=== PATIENT | female | born 1985 | race Caucasian/White ===

== ENCOUNTER 2022-03-12 03:14 | Emergency (ER) | payer SELFPAY ==
[~2022-03-12] VITALS: Ht 170.2 cm; Wt 108.9 kg
[2022-03-12] MEDS ORDERED: NALOXONE HCL 1 MG/ML 2ML VIAL IM ONE (03:45)
[2022-03-12] MEDS ORDERED: SODIUM CHLORIDE 0.9% 1,000 ML IV ONE (03:45)
[2022-03-12 04:16] LABS: BASOPHILS % 0.1 % (0.0-2.0); EOSINOPHILS % 0.2 % (0.0-5.0); HEMOGLOBIN. 12.6 g/dL (12.0-16.0); MEAN CORPUSCULAR HEMOGLOBIN 27.6 pg (28.0-32.0); MEAN CORPUSCULAR VOLUME 83.4 fL (81.0-99.0); MEAN PLATELET VOLUME 7.9 fl (7.4-10.4); MONOCYTES % 3.9 % (2.0-8.0); NEUTROPHILS % 85.8 % (40.0-76.0); PLATELET 269 x1000/uL (130-400); RED BLOOD CELL COUNT 4.56 mill/uL (4.2-5.4); RED CELL DISTRIBUTION WIDTH 14.5 % (11.6-14.6)
[2022-03-12 04:28] LABS: CHLORIDE 106 mEq/L (98-107)
[2022-03-12 04:41] LABS: ETHANOL BLOOD < 10 mg/dL
[2022-03-12 04:45] LABS: HCG SCREEN NEGATIVE
[2022-03-12] MEDS ORDERED: NALO4SPR BOTHNSTRLS (05:45)
[2022-03-12 06:10] VITALS: BP 142/82
== END 2022-03-12 06:39 | disposition home or self-care (01) ==
LOC: ER 03:14
DX: R41.82 Altered mental status, unspecified (principal); F12.10 Cannabis abuse, uncomplicated
CPT/HCPCS: 36415; 71045; 80053; 80307; 80320; 80329; 84703; 85025; 93005; 96360; 96372; 99285; J2310; J7030; G0480